=== PATIENT | female | born 1955 | race Caucasian/White ===

== ENCOUNTER 2018-02-01 14:56 | Outpatient (CLI) | payer OTHER ==
--- NOTE | 2018-02-01 15:54 | RAD ---
TWO VIEW CHEST: Indication: Pre-operative evaluation. Knee surgery. FINDINGS: There is no consolidation, effusion, or pneumothorax. Cardiac silhouette is at upper limits of normal in size. There is osseous degenerative change. IMPRESSION: No focal consolidation. POS: [facility]
== END 2018-02-01 14:57 | disposition home or self-care (01) ==
LOC: BICRAD 14:56
PROVIDERS: ATTEND Orthopaedic Surgery
DX: Z01.818 Encounter for other preprocedural examination (principal); M17.11 Unilateral primary osteoarthritis, right knee
CPT/HCPCS: 71046